=== PATIENT | male | born 1965 | race Hispanic/Latino ===

== ENCOUNTER 2024-06-20 08:56 | Emergency (ER) | payer OTHER ==
[~2024-06-20] VITALS: Ht 180.3 cm; Wt 136.1 kg
[2024-06-20 09:07] VITALS: PULSE 65; RESP 12; TEMP 97.1
[2024-06-20] MEDS: KETOROLAC TROMETHAMINE 60 MG/2 ML VIAL IM STA (09:20)
[2024-06-20] MEDS ORDERED: ULTRAM 50MG50 MG PO (10:38)
[2024-06-20 10:53] VITALS: BP 141/91; PULSE 45; RESP 18; O2SAT 99
[2024-06-20] MEDS: TRAMADOL HCL 50 MG TAB PO STA (10:53)
== END 2024-06-20 10:55 | disposition home or self-care (01) ==
LOC: ER 09:01
DX: S82.52XA Displaced fracture of medial malleolus of left tibia, initial encounter for closed fracture (principal); W01.0XXA Fall on same level from slipping, tripping and stumbling without subsequent striking against object, initial encounter; Y93.01 Activity, walking, marching and hiking; Y92.89 Other specified places as the place of occurrence of the external cause; I10 Essential (primary) hypertension
CPT/HCPCS: 29515; 73590; 73630; 99283; J1885